=== PATIENT | female | born 1965 | race African-American/Black ===

== ENCOUNTER 2016-09-30 16:46 | Emergency (ER) | payer MEDICARE, OTHER ==
[~2016-09-30 16:46] MED LIST: ASTEPRO0.15 % NAS; BENICAR20 PO; BENICAR40 PO; EPIPEN0.3 IM; ESTRADIOL TD; IRON PO; MULTIVIT/MIN PO; PROAIR HFA INH; PULMICORT180 MCG INH; RISP1 PO; SINGULAIR1 PO; ZYRTEC ALLGY10 MG PO; [UNRECOGNIZED DRUG - OTHER] TOP
[2016-09-30 17:42] LABS: BASOPHILS 0.1 %; BASOPHILS ABSOLUTE 0.01 10/3/uL (0.0-0.16); EOSINOPHILS 0.5 %; EOSINOPHILS ABSOLUTE 0.04 10/3/uL (0.0-0.53); ER CBC TAT 0 Hrs 09 Mins; HEMATOCRIT 36.7 % (36.0-48.0); HEMOGLOBIN 12.4 g/dL (12.0-16.0); IMMATURE GRANULOCYTES 0.3 %; IMMATURE GRANULOCYTES ABSOLUTE 0.02 10/3/uL (0.0-0.11); LYMPHOCYTES 26.3 %; LYMPHOCYTES ABSOLUTE 1.93 10/3/uL (0.67-4.30); MANUAL DIFF NO %; MEAN CORPUS HGB CONC 33.8 g/dL (32.0-36.0); MEAN CORPUSCULAR HEMOGLOB 29.7 pg (26.0-34.0); MEAN PLATELET VOLUME 10.4 fL (9.2-13.0); MONOCYTES ABSOLUTE 0.37 10/3/uL (0.21-1.20); NEUTROPHILS 67.8 %; NEUTROPHILS ABSOLUTE 4.96 10/3/uL (2.02-8.40); PLATELET COUNT 247 10/3/uL (150-400); RBC DISTRIBUTION WIDTH 12.4 % (12.0-16.0); RED CELL COUNT 4.17 10/6/uL (4.0-5.6); WHITE BLOOD CELLS 7.3 10/3/uL (4.5-10.5)
[2016-09-30 17:58] LABS: ALKALINE PHOSPHATASE 101 U/L (45-117); CALCIUM, SERUM 9.3 MG/DL (8.5-10.4); CHLORIDE, SERUM 103 MMOL/L (96-112); CO2 (CARBON DIOXIDE) 29 MMOL/L (24-34); CREATININE 0.85 MG/DL (0.55-1.02); GFR AFRICAN AMERICAN 91 ML/MIN (>=60); GFR NON AFRICAN AMERICAN 79 ML/MIN (>=60); GLOBULIN 4.1 G/DL (2.5-4.1); SGOT(AST) 14 U/L (5-40); SGPT(ALT) 19 U/L (5-65); SODIUM, SERUM 139 MMOL/L (135-148); TOTAL BILIRUBIN 0.4 MG/DL (0-1.2); TOTAL PROTEIN 8.1 G/DL (6.0-8.5)
[2016-09-30 17:59] LABS: BUN (BLOOD UREA NITROGEN) 16 MG/DL (6-23); GLUCOSE, SERUM 94 MG/DL (60-99)
[2016-09-30 18:46] LABS: TROPONIN I <0.02 NG/ML (<0.05)
== END 2016-09-30 22:36 | disposition home or self-care (01) ==
LOC: ER 16:46
PROVIDERS: Hospitalist
DX: J45.909 Unspecified asthma, uncomplicated (principal); I10 Essential (primary) hypertension; F31.9 Bipolar disorder, unspecified; E11.9 Type 2 diabetes mellitus without complications; Z91.040 Latex allergy status; Z88.8 Allergy status to other drugs, medicaments and biological substances; Z79.899 Other long term (current) drug therapy
CPT/HCPCS: 71020; 80053; 84484; 85025; 93005; 94640; 96372; 99285; J2930